=== PATIENT | male | born 1960 | race Caucasian/White ===

== ENCOUNTER → 2021-10-18 11:57 | Outpatient (CLI) | payer BC, SELFPAY ==
--- NOTE | ~2021-10-18 | CT_ITS ---
EXAMINATION: CT sinus wo con DATE: 10/18/2021 12:19 INDICATION: Chronic sinusitis TECHNIQUE: Computed tomography (CT) of the paranasal sinuses was performed without contrast. Iterativ e reconstruction technique was employed. Exam dose: 290.62 mGy-cm total exam DLP. COMPARISON: None FINDINGS: There is rightward deviation of the upper portion of the nasal septum. The nasal turbinates are moderately prominent in size The ostiomeatal units are patent. The frontal and sphenoid sinuses are normally developed and aerated. There are small areas of soft tissue thickening in the posterior aspect of left and right ethmoid air cells. There is mild soft tissue thickening at the floor of the right maxillary sinus and slight mucoperiost eal thickening in the lower left maxillary sinus.. The mastoid air cells are normally developed and aerated. IMPRESSION: Rightward deviation of the upper nasal septum Soft tissue prominence of the nasal turbinates Minimal focal soft tissue thickening of the ethmoids and maxillary sinuses Reviewed, dictated and finalized at Location [facility]. Reviewed, dictated and finalized at location B.
== END ==
PROVIDERS: PCP Student in an Organized Health Care Education/Training Program; Visit Provider Student in an Organized Health Care Education/Training Program
DX: J32.0 Chronic maxillary sinusitis (principal); J34.2 Deviated nasal septum
CPT/HCPCS: 70486

== ENCOUNTER 2024-12-03 17:53 | Emergency (ER) | payer BC, MEDICAID, SELFPAY ==
--- NOTE | ~2024-12-03 | CT_ITS ---
CLINICAL INDICATION: Right flank pain with nausea and vomiting COMPARISON: None. TECHNIQUE: Multiple contiguous axial images of the abdomen and pelvis were performed without the admi nistration of intravenous contrast The dose-length product (DLP) was 368.89 mGy-cm. Automated exposure control and iterative reconstruction technique were employed. FINDINGS/OBSERVATIONS: Visualized lower thorax: The bilateral lung bases are clear. The heart is of normal size, without pericardial effusion. Small hiatal hernia is present. Liver: The liver demonstrates homogeneous attenuation and is not enlarged. Gallbladder and biliary system: The gallbladder is only minimally distended, and otherwise unremarkable. Pancreas: Limited evaluation of the pancreas secondary to the lack of intravenous contrast. Spleen: The spleen demonstrates homogeneous attenuation and is not enlarged. Kidneys: Right-sided hydroureteronephrosis secondary to a 5.3 mm calculus within the right ureterovesicular ju nction. No left-sided hydroureteronephrosis. Nonobstructing 5 mm calculus within the lower pole of the left kidney. Adrenal glands: Unremarkable. Gastrointestinal tract: Colonic diverticulosis without surrounding inflammatory change. Appendix: The appendix is of normal caliber (axial series, images 133 through 134) Vasculature: Calcified atherosclerotic disease. Lymph nodes: Limited evaluation without intravenous contrast. Pelvic structures: The bladder is only minimally distended, with a 5.3 mm calculus at the right UVJ. The prostate gland is enlarged, demonstrating mass effect on the base of the bladder. Body wall and musculoskeletal: Age advanced degenerative disease within the lower lumbar spine with osteophyte formation, disc space narrowing, endplate changes and vacuum phenomena most prominent at the level of L5/S1. IMPRESSION: Moderate right-sided hydroureteronephrosis secondary to a 5.3 mm calculus within the right ureteroves icular junction. Reviewed, dictated and finalized at location A. IMPRESSION: Moderate right-sided hydroureteronephrosis secondary to a 5.3 mm calculus withi n the right ureterovesicular junction.
[2024-12-03 17:54] VITALS: BP 180/101; PULSE 112; RESP 16; TEMP 36.4; O2SAT 97
[2024-12-03 19:52] VITALS: BP 164/107; PULSE 84; RESP 15; O2SAT 97
[2024-12-03 20:02] LABS: Basophils Absolute Auto 0.1 K/mm3 (0.0-0.1); Basophils Percent Auto 0.3 % (0.2-1.2); Eosinophils Percent Auto 0.1 % (0-4.4); Hematocrit 47.1 % (42.0-52.0); Immature Granulocyte Absolute 0.07 K/mm3 (0.00-0.031); Immature Granulocyte Percent A 0.4 % (0-0.5); Lymphocytes Absolute Auto 0.98 K/mm3 (0.9-3.2); Mean Corpuscular Hemoglobin 28.4 pg (26-34); Mean Corpuscular Volume 83.5 fl (80-100); Mean Platelet Volume 9.2 fl (7.4-10.4); Monocytes Absolute Auto 1.5 K/mm3 (0.1-0.6); Monocytes Percent Auto 8.9 % (2.6-8.5); Neutrophils Absolute Auto 13.8 K/mm3 (1.3-6.7); Neutrophils Percent Auto 84.3 % (45.5-73.1); Platelet Count Result 338 k/mm3 (150-375); Red Blood Count 5.64 M/mm3 (4.6-6.20); Red Cell Distribution Width 13.1 % (11.5-14.5); White Blood Count 16.3 K/mm3 (4.5-10.0)
[2024-12-03 20:11] LABS: Alanine Aminotransferase 35 U/L (6-50); Albumin Level 4.9 g/dL (3.5-5.1); Alkaline Phosphatase 67 U/L (38-126); Anion Gap 14 mmol/L (4-12); Aspartate Amino Transferase 31 U/L (17-59); Bilirubin,Total 0.8 mg/dL (0.2-1.3); Blood Urea Nitrogen 17 mg/dL (9-20); Calcium 9.8 mg/dL (8.4-10.2); Carbon Dioxide 21 mmol/L (22-30); Chloride 102 mmol/L (98-107); Estimated CRCL calculation 65 ml/min; Estimated Glomerular Filt Rate > 60; Glucose 128 mg/dL (65-110); Lipase 48 U/L (23-300); Potassium 3.6 mmol/L (3.4-5.0); Sodium 137 mmol/L (137-145); Total Protein 8.2 g/dL (6.3-8.2)
[2024-12-03 20:17] VITALS: BP 130/69; PULSE 78; RESP 15; O2SAT 98
--- NOTE | 2024-12-03 20:24 | ED_ITS ---
HPI - General Adult General Chief complaint: Nausea/Vomiting/Diarrhea Stated complaint: violently vomiting Time Seen by Provider: 12/03/24 19:53 History of Present Illness HPI narrative: 63-year-old male with history of kidney stones present to the emergency department for evaluation for right flank pain with associated nausea vomiting the patient states his reminiscent his previous kidney stone. Patient states approximately midnight last night he had onset of right flank pain and about 20 minutes of nausea and vomiting. Patient did take Flomax and states this usually does help pass a stone. Patient states that the pain has been consistent since last night. Patient denies any fevers. Patient denies any additional nausea or vomiting. Related Data Home Medications ?Medication ?Instructions ?Recorded ?Confirmed ?Last Taken ?Type omeprazole magnesium 20 mg 20 mg PO DAILY 04/27/19 11/23/24 Unknown History tablet,delayed release (Prilosec OTC) atorvastatin 20 mg tablet 20 mg PO DAILY 11/23/24 11/23/24 Unknown History finasteride 5 mg tablet 5 mg PO DAILY 11/23/24 11/23/24 Unknown History hydrochlorothiazide 25 mg tablet 25 mg PO DAILY 11/23/24 11/23/24 Unknown History tadalafil 5 mg tablet 5 mg PO PRN SEXUAL ACTIVITY 11/23/24 11/23/24 Unknown History tamsulosin 0.4 mg capsule 0.4 mg PO Q24H 11/23/24 11/23/24 Unknown History testosterone cypionate 200 mg/mL 200 mg IM .every 2 weeks 11/23/24 11/23/24 Unknown History intramuscular oil (Depo-Testosterone) Allergies Allergy/AdvReac Type Severity Reaction Status Date / Time No Known Allergies Allergy Verified 11/23/24 09:36 Review of Systems 2 Review of Systems: All systems reviewed & are unremarkable except as noted in HPI and below PMFSH Family History Family History Father Family history of Alzheimer's disease Social History Social History Smoking status: Never smoker Alcohol intake: current Drinks per week: 4 Substance use: never Substance use type: does not use Living arrangements: alone Spiritual care concerns: No Exam 2 Narrative: APPEARANCE: Uncomfortable appearing HEAD: normocephalic, atraumatic. EYES: PERRLA/EOMI, conjunctivae clear. NOSE: Normal no drainage EARS:TMS clear with good light reflex. THROAT: Pharynx clear, no exudate. NECK: Supple. No adenopathy, no masses. RESPIRATORY: Airway patent, respirations nonlabored. Clear to auscultation bilaterally, no rales, rhonchi, wheezing. CARDIOVASCULAR: Regular rate and rhythm without murmurs rubs or gallops. ABDOMINAL: No significant right lower quadrant tenderness or right CVA tenderness to palpation although this is the site of his pain MUSCULOSKELETAL: Moves all extremities. Strength/ROM intact, No edema, No calf tenderness. NEURO: Alert. Cranial nerves II through XII intact. Grossly intact SKIN: Warm, dry. Normal Color Course Vital Signs Vital signs: Vital Signs Temperature 97.6 F 12/03/24 17:54 Pulse Rate 112 H 12/03/24 17:54 Respiratory Rate 16 12/03/24 17:54 Blood Pressure 180/101 H 12/03/24 17:54 Pulse Oximetry 97 12/03/24 17:54 Oxygen Delivery Room Air 12/03/24 17:54 Temperature 97.6 F 12/03/24 17:54 Pulse Rate 73 12/03/24 22:44 Respiratory Rate 15 12/03/24 22:44 Blood Pressure 138/74 12/03/24 22:44 Pulse Oximetry 98 12/03/24 22:44 Oxygen Delivery Room Air 12/03/24 19:52 Medical Decision Making [facility] Narrative Medical decision making narrative: 63-year-old male presents to the emergency department for evaluation for right flank pain. Patient declined any medications for pain control at time of initial evaluation. Patient is afebrile but does have an elevated leukocytosis of 16.3 with hemoglobin of 16. No acute abnormalities on his CMP with normal creatinine. No evidence of a urinary tract infection on the UA. CT scan does confirm a 5.3 mm right ureteral calculi at the UVJ. Patient was treated with IV Toradol and does feel significantly improved. Patient was updated on the results of the imaging and reasons to return the emergency department. Patient was discharged home with p.o. Zofran, p.o. ibuprofen and p.o. Alleman. Patient does have Flomax at home already. Patient does have follow-up with Dr. Grey. Differential Diagnosis Differential Diagnosis: UTI, ureteral calculi, cholecystitis, diverticulitis, colitis, appendicitis Vital Signs Vital Signs: Vital Signs Temperature 97.6 F 12/03/24 17:54 Pulse Rate 112 H 12/03/24 17:54 Respiratory Rate 16 12/03/24 17:54 Blood Pressure 180/101 H 12/03/24 17:54 Pulse Oximetry 97 12/03/24 17:54 Oxygen Delivery Room Air 12/03/24 17:54 Temperature 97.6 F 12/03/24 17:54 Pulse Rate 73 12/03/24 22:44 Respiratory Rate 15 12/03/24 22:44 Blood Pressure 138/74 12/03/24 22:44 Pulse Oximetry 98 12/03/24 22:44 Oxygen Delivery Room Air 12/03/24 19:52 Lab Data Lab results reviewed: Yes I reviewed the patient's lab results. 12/03/24 19:56 12/03/24 19:56 Labs: Lab Results 12/03/24 12/03/24 Range/Units 19:56 20:12 WBC 16.3 H (4.5-10.0) K/mm3 RBC 5.64 (4.6-6.20) M/mm3 Hgb 16.0 (14.0-18.0) g/dL Hct 47.1 (42.0-52.0) % MCV 83.5 (80-100) fl MCH 28.4 (26-34) pg MCHC 34.0 (32-36) g/dl RDW 13.1 (11.5-14.5) % Plt Count 338 (150-375) k/mm3 MPV 9.2 (7.4-10.4) fl Immature Gran % (Auto) 0.4 (0-0.5) % Neut % (Auto) 84.3 H (45.5-73.1) % Lymph % (Auto) 6.0 L (18.3-44.2) % [place] % (Auto) 8.9 H (2.6-8.5) % Eos % (Auto) 0.1 (0-4.4) % Baso % (Auto) 0.3 (0.2-1.2) % Lymph # (Auto) 0.98 (0.9-3.2) K/mm3 [place] # (Auto) 1.5 H (0.1-0.6) K/mm3 Eos # (Auto) 0.0 (0-0.3) K/mm3 Baso # (Auto) 0.1 (0.0-0.1) K/mm3 Abs Immat Gran (auto) 0.07 H (0.00-0.031) K/mm3 Absolute Neuts (auto) 13.8 H (1.3-6.7) K/mm3 Absolute Nucleated RBC 0.000 (0.0-0.012) K/mm3 Nucleated RBC % 0.0 (0.0-0.2) % Sodium 137 (137-145) mmol/L Potassium 3.6 (3.4-5.0) mmol/L Chloride 102 (98-107) mmol/L Carbon Dioxide 21 L (22-30) mmol/L Anion Gap 14 H (4-12) mmol/L BUN 17 (9-20) mg/dL Creatinine 1.16 (0.7-1.3) mg/dL Estim Creat Clear Calc 65 ml/min Estimated GFR > 60 (59 - ) Glucose 128 H (65-110) mg/dL Calcium 9.8 (8.4-10.2) mg/dL Total Bilirubin 0.8 (0.2-1.3) mg/dL AST 31 (17-59) U/L ALT 35 (6-50) U/L Alkaline Phosphatase 67 (38-126) U/L Total Protein 8.2 (6.3-8.2) g/dL Albumin 4.9 (3.5-5.1) g/dL Lipase 48 (23-300) U/L Urine Color Yellow (Yellow) Urine Appearance Clear (Clear) Urine pH 5.5 (5.0-9.0) Ur Specific [place] 1.008 (1.001-1.035) Urine Protein Negative (Negative) mg/dL Urine Glucose (UA) Negative (Negative) mg/dL Urine Ketones Trace H (Negative) mg/dL Ur Blood (Man) Trace (Negative) Urine Nitrate Negative (Negative) Urine Bilirubin Negative (Negative) Urine Urobilinogen 0.2 (<2.0) mg/dL Leukocyte Esterase Rfl Negative (Negative) VALERIANO/UL Urine RBC 0-2 (0-2) /hpf Urine WBC 0-5 (0-3) /hpf Ur Squamous Epith Cells None seen (Few) /hpf Urine Bacteria None seen /hpf Urine Casts 0-2 Imaging Data Radiologist's impression: Impressions Abdomen/Pelvis CT 12/03/24 21:29 IMPRESSION: Moderate right-sided hydroureteronephrosis secondary to a 5.3 mm calculus within the right ureterovesicular junction. Discharge Plan Discharge Clinical Impression: Calculi, ureter Patient Disposition: Home Condition: Stable Instructions: Antibiotic Form, Kidney Stones (ED), How to Strain Your Urine (ED) Additional Instructions: Take your home Flomax to help you pass the stone. Zofran as needed for nausea control. Ibuprofen for pain control and Alleman as needed for additional pain control. Drink plenty of fluids. Close follow-up with Urology as outpatient. If you have any worsening symptoms including inability urinate, uncontrolled pain or fever then please call or return to the emergency department. Patient Language: Honduran Prescriptions: New hydrocodone-acetaminophen 5-325 mg tablet 1 tablet PO Q12H PRN (Reason: pain) Qty: 14 0RF ondansetron 4 mg tablet,disintegrating 4 mg PO Q8H PRN (Reason: nausea and vomiting) Qty: 14 0RF No Action Prilosec OTC 20 mg tablet,delayed release (DR/EC) 20 mg PO DAILY atorvastatin 20 mg tablet 20 mg PO DAILY tamsulosin 0.4 mg capsule 0.4 mg PO Q24H hydrochlorothiazide 25 mg tablet 25 mg PO DAILY testosterone cypionate [Depo-Testosterone] 200 mg/mL oil 200 mg IM .every 2 weeks finasteride 5 mg tablet 5 mg PO DAILY tadalafil 5 mg tablet 5 mg PO PRN amlodipine 10 mg tablet 10 mg PO DAILY Qty: 90 1RF lisinopril 40 mg tablet 40 mg PO DAILY Qty: 90 0RF (DME) syringe (disposable) 3 mL syringe See Rx Instructions .ROUTE .MEDSUPPLY Qty: 12 3RF Rx Instructions: inject weekly Follow-up/Referrals: Roxy,DO Tung [Primary Care Provider] - Lambert Grey MD [Physician] -
[2024-12-03 20:39] LABS: Add Urine Microscopic? YES; Appearance Urine Clear (Clear); Bacteria Urine None Seen /hpf; Bilirubin Urine Negative (Negative); Blood Urine Trace (Negative); Color Urine Yellow (Yellow); Glucose Urine UA Negative (Negative); Ketones Urine Trace mg/dL (Negative); Leukocyte Esterase Ur Negative LEU/UL (Negative); Nitrate Urine Negative (Negative); Non Pathogenic Casts 0-2; Protein Urine Negative (Negative); RBC Urine 0-2 /hpf (0-2); Specific Grav Ur 1.008 (1.001-1.035); Squamous Epithelial Cell Urine None Seen /hpf (Few); Urobilinogen Urine 0.2 mg/dL (<2.0); WBC Urine 0-5 /hpf (0-3); pH Urine 5.5 (5.0-9.0)
[2024-12-03] MEDS: KETOROLAC 15 MG/ML VIAL (*BKC) IV PUSH (22:16)
[2024-12-03 22:44] VITALS: BP 138/74; PULSE 73; RESP 15; O2SAT 98
== END 2024-12-03 22:48 | disposition home or self-care (01) ==
PROVIDERS: Emergency Provider Emergency Medicine; PCP Student in an Organized Health Care Education/Training Program
DX: N13.2 Hydronephrosis with renal and ureteral calculous obstruction (principal); Z87.442 Personal history of urinary calculi; Z79.899 Other long term (current) drug therapy; Z79.890 Hormone replacement therapy
CPT/HCPCS: 36415; 74176; 80053; 81001; 83690; 85025; 96374; 99284; J1885

== ENCOUNTER 2024-12-07 01:59 | Day surgery (SDC) | payer BC, SELFPAY ==
--- OUTSIDE RECORDS SUMMARY | 2024-08-10 01:59 | XMS_ITS | Clinical Summary ---
Author Organization [facility] Address [address] [place] [address] Care Team Providers Care Automotive Parts Counter Assistant Name Role Phone HueyconchaTung Ronak OTERO Primary Care Provider + Allergies No known active allergies Medications tadalafil (CIALIS) 5 MG tablet Take 1 tablet (5 mg total) by mouth daily. Active omeprazole (PRILOSEC) 20 MG capsule Take 1 capsule (20 mg total) by mouth daily. Active B-D 3CC LUER-ERVIN SYR 22GX1 22G X 1 3 ML Misc INJECT WEEKLY DIRECTED 07/11/19 24 Active finasteride (PROSCAR) 5 MG tablet Take 1 tablet (5 mg total) by mouth daily. 08/27/19 24 Active tamsulosin (FLOMAX) 0.4 MG CapIndications:R ecurrent kidney stones Take 1 capsule (0.4 mg total) by mouth daily. 90 capsule 1 05/08/20 24 Active atorvastatin (LIPITOR) 20 MG tabletIndication s:Hyperlipemia TAKE 1 TABLET(20 MG) BY MOUTH EVERY NIGHT AT BEDTIME 90 tablet 1 05/08/20 24 Active amLODIPine (NORVASC) 10 MG tabletIndication s:Essential hypertension TAKE 1 TABLET(10 MG) BY MOUTH DAILY 30 tablet 5 06/16/19 25 Active testosterone cypionate (DEPO TESTOSTERONE) 200 MG/ML injectionIndicat ions:Hypogonadis m in male ADMINISTER 1 ML IN THE MUSCLE EVERY 14 DAYS 6 mL 06/19/19 25 Active lisinopril (PRINIVIL) 40 MG tabletIndication s:Essential hypertension TAKE 1 TABLET(40 MG) BY MOUTH DAILY 90 tablet 1 07/15/19 25 Active hydroCHLOROthiaz harish (HYDRODIURIL) 25 MG tabletIndication s:Essential hypertension TAKE 1 TABLET(25 MG) BY MOUTH EVERY MORNING 90 tablet 1 07/15/19 25 Active lisinopril (PRINIVIL) 40 MG tabletIndication s:Essential hypertension TAKE 1 TABLET(40 MG) BY MOUTH DAILY 90 tablet 1 01/09/20 24 025 Discontinued hydroCHLOROthiaz harish (HYDRODIURIL) 25 MG tabletIndication s:Essential hypertension TAKE 1 TABLET(25 MG) BY MOUTH EVERY MORNING 90 tablet 1 01/09/20 24 025 Discontinued Active Problems Problem Noted Date Diagnosed Date Hyperlipidemia, unspecified hyperlipidemia type 02/14/2021 BMI 29.0-29.9,adult 03/17/2020 Rosacea 03/17/2020 Erectile dysfunction, unspecified erectile dysfu nction type 03/17/2020 Hypogonadism in male 03/17/2020 Gastroesophageal reflux dise ase, unspecified whether esophagitis present 03/17/2020 Essential hypertension 03/17/2020 Seasonal allergic rhinitis 03/17/2020 Immunizations Name Administration Dates Next Due Fluzone (IIV3, Trivalent, 0.5 ML Prefilled Syrin ge) 04/13/2024 Fluzone 6 Months+ Quad (0.5 mL Prefilled Syringe ) 07/04/2022,03/17/2020 Influenza Adult (Generic) 04/10/2015 Tdap (Adacel) 02/14/2021 Family History Medical History Relation Comments Alzheimers Father Hypertension Mother Thyroid Disease Mother Relation Status Comments Cousin Father Mother Alive Social History Tobacco Use Types Packs/Day Years Used Date Smoking Tobacco: Never Passive Smoke Exposure: Never Smokeless Tobacco: Never Tobacco Cessation:Counseling Given: Not Answered Alcohol Use Standard Drinks/Week Comments Yes 11.7 (1 standard drink = 0.6 oz pure alcohol) sicially AUDIT-C Answer Date Recorded Q1: How often do you have a drink containing alc ohol? 2-4 times a month 03/17/2020 Q2: How many drinks containi ng alcohol do you have on a typical day when you are drinking? 1 or 2 03/17/2020 Q3: How often do you have si x or more drinks on one occasion? 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 Not on file Not on jessica e Last Filed Vital Signs Vital Sign Reading Time Taken Comments Blood Pressure 136/70 04/13/2024 8:05 AM TELESALES MANAGER Pulse 84 04/13/2024 8:05 AM TELESALES MANAGER Temperature 37 C (98.6 F) 04/13/2024 8:05 AM TELESALES MANAGER Respiratory Rate 16 04/13/2024 8:05 AM TELESALES MANAGER Oxygen Saturation 98% 04/13/2024 8:05 AM TELESALES MANAGER Inhaled Oxygen Concentration - - Weight 94.5 kg (208 lb 4.8 oz) 04/13/2024 8:05 A M TELESALES MANAGER Height 182.9 cm (6') 04/13/2024 8:05 AM TELESALES MANAGER Body Mass Index 28.25 04/13/2024 8:05 AM TELESALES MANAGER Plan of Treatment Upcoming Encounters Date Type Department Care Team (Late st Contact Info) Description 10/12/2024 8:00 AM CDT Office Visit [facility] [id number] [place] [address] Tung Ramsey, DO [address] [place] [address] [id number] Health Maintenance Due Date Last Done Comments Annual Physical 1963 COVID-19 Vaccine ( season) 2024 05/19/2021, 08/18/2020 PHQ-2 (Physician [place]ling) 06/10/2024 10/08/2023 Zoster Vaccines (1 of 2) 10/07/2024 Pos tponed from 2012 (Going to Outside Clinic) Colorectal Cancer Screening Colonoscopy (10 Years) 06/10/2025 12/16/2017 DTaP, Tdap and Td Vaccines (2 - Td or Tdap) 02/14/2031 02/14/2021 RSV Immunization or 60+ Years (1 - 1-dose 75+ series) 2037 Hepatitis C Completed 07/04/2022 Influenza Adult Completed 04/13/2024, 06/11, 03/17/2020, Additional history exists Meningococcal B Vaccine Aged Out No l onger eligible based on patient's age to complete this topic Meningococcal Vaccine Aged Out No keegan citlali eligible based on patient's age to complete this topic Pneumococcal Vaccine: Pediatrics (0 to 5 Years) and At-Risk Patients (6 to 64 Years) Aged Out No longer eligible based on patient's age to complete this topic RSV Immunizations Under 20 Months Aged Out No longer eligible based on patient's age to complete this topic Procedures Procedure Name Priority Date/Time Associated Diagnosis Comments HEPATITIS C ANTIBODY Routine 07/04/2022 10:03 AM TELESALES MANAGER Need for hepatitis C screening test Annual physical exam COLONOSCOPY GENERIC (SCAN ORDER) 12/16/2017 from Last 3 Months or Most Recently Relevant to Health Maintenance Results * HEPATITIS C ANTIBODY (07/04/2022 10:03 AM TELESALES MANAGER) HEPATITIS C AB NON-REACTI VE NON-REACT RADHA 07/04/2022 7:21 PM TELESALES MANAGER [facility] Comment: ANTIBODIES TO HCV NOT DETECTED. DOES NOT EXCLUDE THE POSSIBILITY OF EXPOSURE TO HCV. 07/04/2022 10:0 3 AM TELESALES MANAGER Tung Ramsey DO LABORATORY Final Re sult [facility] [address] [place] [address], [phone] * COLONOSCOPY GENERIC (12/16/2017) 12/16/2017 [facility] Scanned SCANNING Final Resu lt from Last 3 Months or Most Recently Relevant to Health Maintenance Insurance [facility] Care Teams Automotive Parts Counter Assistant Relationship Specialty Start Date End Date Tung Ramsey DO [address] [place] [id number] PCP - General FAMILY PRACTICE 03/17/20
--- OUTSIDE RECORDS SUMMARY | 2024-08-10 01:59 | XMS_ITS | Clinical Summary ---
Author Organization [facility] Address 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:35 AM MOTEL CLERK Gender Identity Not on file Sexual Orientation Not on file Plan of Treatment Health Maintenance Due Date Last Done Comments DTAP/TDAP/TD VACCINES (1 - Tdap) 1981 COLORECTAL SCREENING 12/31/2007 Colorectal Cancer Screening 12/31/2007 FIT-DNA Q 3 years 12/31/2007 FIT/FOBT Q 1 year 12/31/2007 Flex Sig/CT Colonography Q 5 years 12/31/2007 ZOSTER VACCINE (1 of 2) 2012 INFLUENZA VACCINE (#1) 2024 RSV VACCINE (60+ or ) (1 - 1-dose 75+ series) 2037 PNEUMOCOCCAL VACCINE 0-49 YEARS Aged Out No longer eligible based on patient's age to complete this topic Insurance [employer] Commercial
--- OUTSIDE RECORDS SUMMARY | 2024-08-10 01:59 | XMS_ITS | Continuity of Care Document ---
Author Organization [facility] Address [address] [place] [address] Phone Care Team Providers Care Cut Plug Packer Name Role Phone Jevon Sow MD Unavailable Unavailable Advance Directives Directive Yes / No Effective Date File Name No Information Encounters Encounter Description Practice Location Reason(s) For Visit Diagnoses Date Provider Providers Copied on Encounter [facility], [address], [place], [place], [id number], tel:[phone] [facility] No Information Magi Escoto. [address] [facility], [address], [id number], . tel:[phone] Family History Family Member Type Diagnosis Age At Onset No Information Payers Payer name Insurance type Covered republican ID Authoriza tion(s) No Information Social History Type Description Quantity Date Captured Comments Sex Male Smoking Status No Information Chief Complaint And Reason For Visit No Information Reason For Referral Reason For Referral No Information History Of Present Illness Encounter Date Complaint History Of Prese nt Illness No Information Functional Status Date Functional Assessmen t No Information Instructions Date Instruction Additional Infor mation No Information Assessments Type Assessment Date No Information Patient Care Teams Name Effective Dates (start - stop) Status Members No Information
[2024-11-23 09:48] VITALS: BMI 27.1
[2024-12-07 13:04] VITALS: BP 156/84; PULSE 62; RESP 18; TEMP 36.7; O2SAT 100; BMI 26.3
[2024-12-07] MEDS: LACTATED RINGERS 1,000 ML 150 ML IV CONT (13:13)
--- NOTE | 2024-12-07 13:44 | P.PNAN_ITS ---
Anes - Initial Pre Proc Eval Procedure: Operation Date: 12/07/24 13:30 Proposed Procedures p Screening Colonoscopy - Raciel Geronimo MD Date/Time: 12/07/24 13:44 Surgeon: Raciel Geronimo MD Pre Op Diagnosis: screening malignant neoplasm of colon Patient Data Age: 63 Gender: M Height: 1.83 m Weight: 88 kg Last Vital Signs Temp 36.7 C 12/07/24 13:04 Pulse 62 12/07/24 13:04 Resp 18 12/07/24 13:04 BP 156/84 H 12/07/24 13:04 Pulse Ox 100 12/07/24 13:04 O2 Del Method Room Air 12/07/24 13:04 Allergies Allergy/AdvReac Type Severity Reaction Status Date / Time No Known Allergies Allergy Verified 12/07/24 13:01 Home Medications ?Medication ?Instructions ?Recorded ?Confirmed ?Type omeprazole magnesium 20 mg 20 mg PO DAILY 04/27/19 11/23/24 History tablet,delayed release (Prilosec OTC) amlodipine 10 mg tablet 10 mg PO DAILY #90 tabs 02/22/20 11/23/24 Rx lisinopril 40 mg tablet 40 mg PO DAILY #90 tabs 05/10/20 11/23/24 Rx syringe (disposable) 3 mL #12 ea 05/07/22 Rx atorvastatin 20 mg tablet 20 mg PO DAILY 11/23/24 11/23/24 History finasteride 5 mg tablet 5 mg PO DAILY 11/23/24 11/23/24 History hydrochlorothiazide 25 mg tablet 25 mg PO DAILY 11/23/24 11/23/24 History tadalafil 5 mg tablet 5 mg PO PRN SEXUAL ACTIVITY 11/23/24 11/23/24 History tamsulosin 0.4 mg capsule 0.4 mg PO Q24H 11/23/24 11/23/24 History testosterone cypionate 200 mg/mL 200 mg IM .every 2 weeks 11/23/24 11/23/24 History intramuscular oil (Depo-Testosterone) hydrocodone 5 mg-acetaminophen 325 1 tablet PO Q12H PRN pain #14 tabs 12/03/24 Rx mg tablet ondansetron 4 mg disintegrating 4 mg PO Q8H PRN nausea and 12/03/24 Rx tablet vomiting #14 tabs Patient hx anesthesia problems: none Family hx anesthesia problems: none Results Review: All pre-operative results and documents have been reviewed as part of the pre- operative evaluation. [facility] Past Medical History Medical History (Updated 12/07/24 @ 13:44 by Miguelangel Kirby MD) HTN (hypertension) Family History Family History Father Family history of Alzheimer's disease Social History Social History Smoking status: Never smoker Alcohol intake: current Drinks per week: 4 Substance use: never Substance use type: does not use Living arrangements: alone Spiritual care concerns: No Anes - Eval Final PreProcedure Day of Procedure 12/07/24 13:44 Patient weight: overweight Heart: regular rate and rhythm Lungs: clear to auscultation Airway: Mallampati scale class II Neurological: alert and oriented Last oral intake: >/= 8 hours ASA classification: III Emergent: no Anesthetic plan: proceed Anesthesia type and monitoring: general GIVS and standard monitoring Results Review: All pre-operative results and documents have been reviewed as part of the pre- operative evaluation. Informed Consent: The patient's anesthetic plan and its attendant risks and benefits were discussed with the patient/family/POA. Questions were solicited and answers provided to the satisfaction of the patient/family/POA.
--- NOTE | 2024-12-07 13:58 | SUR.PREOP ---
Checked in with patient. Let him know that we are a little behind schedule that he will be heading back for his procedure shortly. Patient has no complaint.
--- NOTE | 2024-12-07 14:15 | PM.IMHP ---
H&P: HPI History of Present Illness Date/Time: 12/07/24 14:15 Chief Complaint: Screening colonoscopy Narrative: This is the patient's second colonoscopy. There are no GI symptoms and there is no family history of colorectal cancer. Review of Systems Review of Systems: All systems reviewed & are unremarkable except as noted in HPI and below PMFSH Past Medical History Medical History (Updated 12/07/24 @ 14:16 by Raciel Geronimo MD) HTN (hypertension) Family History Family History Father Family history of Alzheimer's disease Social History Social History Smoking status: Never smoker Alcohol intake: current Drinks per week: 4 Substance use: never Substance use type: does not use Living arrangements: alone Spiritual care concerns: No Meds Home Medications and Allergies Home Medications ?Medication ?Instructions ?Recorded ?Confirmed ?Type omeprazole magnesium 20 mg 20 mg PO DAILY 04/27/19 11/23/24 History tablet,delayed release (Prilosec OTC) amlodipine 10 mg tablet 10 mg PO DAILY #90 tabs 02/22/20 11/23/24 Rx lisinopril 40 mg tablet 40 mg PO DAILY #90 tabs 05/10/20 11/23/24 Rx syringe (disposable) 3 mL #12 ea 05/07/22 Rx atorvastatin 20 mg tablet 20 mg PO DAILY 11/23/24 11/23/24 History finasteride 5 mg tablet 5 mg PO DAILY 11/23/24 11/23/24 History hydrochlorothiazide 25 mg tablet 25 mg PO DAILY 11/23/24 11/23/24 History tadalafil 5 mg tablet 5 mg PO PRN SEXUAL ACTIVITY 11/23/24 11/23/24 History tamsulosin 0.4 mg capsule 0.4 mg PO Q24H 11/23/24 11/23/24 History testosterone cypionate 200 mg/mL 200 mg IM .every 2 weeks 11/23/24 11/23/24 History intramuscular oil (Depo-Testosterone) hydrocodone 5 mg-acetaminophen 325 1 tablet PO Q12H PRN pain #14 tabs 12/03/24 Rx mg tablet ondansetron 4 mg disintegrating 4 mg PO Q8H PRN nausea and 12/03/24 Rx tablet vomiting #14 tabs Allergies Allergy/AdvReac Type Severity Reaction Status Date / Time No Known Allergies Allergy Verified 12/07/24 13:01 Vital Signs Vital Signs - 24 hr 12/07/24 13:04 Temperature 98.1 F Pulse Rate 62 Respiratory Rate 18 Blood Pressure 156/84 H Pulse Oximetry 100 Oxygen Delivery Room Air Exam Const: General: cooperative and healthy appearing Resp: Effort & Inspection: normal respiratory effort and able to speak in complete sentences Auscultation: clear to auscultation bilaterally Cardio: Rate: regular rate Rhythm: regular rhythm GI: Inspection: normal to inspection GI Palp: No No hepatosplenomegaly present Auscultation: normal bowel sounds Rectal Exam: deferred Skin: General skin exam: normal color Psych: Appearance: grossly normal Mental Status: mental status grossly normal Assessment and Plan Assessment and plan (1) Encounter for screening colonoscopy: Code(s): Z12.11 - Encounter for screening for malignant neoplasm of colon Status: Acute Assessment and Plan: The patient is deemed a good candidate for the procedure. Consent signed. Will proceed.
[2024-12-07 14:37] VITALS: BP 168/95; PULSE 63; RESP 19; O2SAT 98
--- NOTE | 2024-12-07 14:38 | S_PTH ---
PATIENT: Shun Zamorano LOC: [facility] U#:[id number] AGE/SX: 63/M ROOM: RE12/07/[address]: Raciel Geronimo MD : 1960 BED: DIS: 12/07/2024 SPEC #: [id number] RECD: 12/08/24 08:22 STATUS: SHAMIKA REIvette #: [id number] [place]: 12/07/24 14:[address]: Raciel Geronimo DEPT: [facility] Surgical RECD BY: Rubén Boykin ENTERED: 12/08/24 08:23 SP TYPE: Surgical OTHR DR: Tung Ramsey, DO Tissues: A - Colon Polypectomy B - Colon Polypectomy C - Colon Polypectomy Procedures: Hematoxylin and Eosin Stain Gross and Microscopic Level 4
[2024-12-07 14:47] VITALS: BP 165/103; PULSE 60; RESP 19; O2SAT 99
[2024-12-07 14:57] VITALS: BP 162/96; PULSE 60; RESP 16; O2SAT 99
== END 2024-12-07 15:03 | disposition home or self-care (01) ==
PROVIDERS: PCP Student in an Organized Health Care Education/Training Program; Visit Provider Internal Medicine Gastroenterology
PROC: 0DJD8ZZ Inspection of Lower Intestinal Tract, Via Natural or Artificial Opening Endoscopic (ICD-10-PCS; CPT 45378; principal; 2024-12-07 13:30)
DX: Z12.11 Encounter for screening for malignant neoplasm of colon (principal); D12.5 Benign neoplasm of sigmoid colon; D12.0 Benign neoplasm of cecum; D12.4 Benign neoplasm of descending colon; K57.30 Diverticulosis of large intestine without perforation or abscess without bleeding; K64.8 Other hemorrhoids
CPT/HCPCS: 45385; 88305; J2704; J7120